=== PATIENT | male | born 1955 | race Caucasian/White ===

== ENCOUNTER 2020-03-26 14:00 | Emergency (ER) | payer OTHER, SELFPAY ==
[2020-03-26 14:10] VITALS: BP 146/63; PULSE 38; RESP 12; TEMP 36.4; O2SAT 98; BMI 31.4
--- NOTE | 2020-03-26 14:26 | DI.RAD.S_ITS ---
PROCEDURE: XR RIBS LT MIN 3V W CXR1V INDICATIONS: fall, rib pain TECHNIQUE: 2 views of the left ribs were acquired, along with a single view chest. COMPARISON: None. FINDINGS: Surgical changes and devices: None. Bones and chest wall: A marker is placed upon the area of clinical concern. Within this region, no displaced rib fracture or other significant rib abnormality can be seen. No rib fractures are seen elsewhere. At least moderate bony degenerative changes are seen. Moderate dextroconvex thoracic scoliosis is seen. No suspicious bony lesions. Overlying soft tissues appear unremarkable. Lungs and pleura: No pleural effusions or pneumothorax. Lungs appear clear. Mediastinum: Mediastinal contours appear normal. Heart size is normal. IMPRESSION: No displaced rib fractures are seen. No pneumothorax. Degenerative changes are seen. Moderate dextroconvex thoracic scoliosis. Dictated by: Lele Peraza M.D. on 03/26/2020 at 14:14 Approved by: Lele Peraza M.D. on 03/26/2020 at 14:16
--- NOTE | 2020-03-26 14:35 | PC.NURSE ---
Pt reports baseline of bigeminy on EKG. DR Hancock aware.
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
[2020-03-26 15:30] VITALS: PULSE 93; O2SAT 98
[2020-03-26 15:53] VITALS: BP 119/59; PULSE 91; RESP 14; O2SAT 97
[2020-03-26] MEDS: ACETAMINOPHEN 325 MG TABLET 650 MG PO (16:04)
[2020-03-26] MEDS: BACITRACIN OINT 0.9 GM PCKT 1 APPLIC TOP (16:21)
[2020-03-26 16:29] VITALS: BP 110/62; PULSE 76; RESP 18; O2SAT 99
== END 2020-03-26 16:30 | disposition home or self-care (01) ==
PROVIDERS: Emergency Provider Emergency Medicine
DX: S01.01XA Laceration without foreign body of scalp, initial encounter (principal); S20.212A Contusion of left front wall of thorax, initial encounter; S09.90XA Unspecified injury of head, initial encounter; I49.8 Other specified cardiac arrhythmias; Z79.82 Long term (current) use of aspirin; W19.XXXA Unspecified fall, initial encounter
CPT/HCPCS: 12001; 71101; 93005; 93010; 99284